=== PATIENT | male | born 1955 | race Caucasian/White ===

== ENCOUNTER 2016-12-07 05:21 | Day surgery (SDC) | payer BC ==
--- NOTE | ~2016-12-07 | EGD ---
EGD REPORT [facility] [address] [place]. [address] NAME: TREVOR HENNESSY : 55 STATUS : REG [facility]#: [id number] AGE: 61 ADM/REG DATE : 12/07/16 MR#: [id number] REPORT SERV DATE: 12/07/16 DICTATED BY: KIERA LEWIS DATE: 12/07/16 REPORT STATUS : Draft TRANSCRIBED BY: [facility] DATE: 12/07/16 Endoscopy Center Patient Name: Trevor Hennessy Date of : 1955 Attending MD: KIERA LEWIS, Procedure Date No Time: 12/07/2016 Procedure: Upper GI endoscopy Indications: Heartburn, Esophageal reflux symptoms that recur despite appropriate therapy Referring MD: Stephanie Tian Medicines: Propofol per Anesthesia Complications: No immediate complications. Estimated blood loss: None. Procedure: Pre-Anesthesia Assessment: - ASA Grade Assessment: III - A patient with severe systemic disease. After obtaining informed consent, the endoscope was passed under direct vision. Throughout the procedure, the patient's blood pressure, pulse, and oxygen saturations were monitored continuously. The GIF [id number] was introduced through the mouth, and advanced to the second part of duodenum. The upper GI endoscopy was accomplished with ease. The patient tolerated the procedure well. Findings: LA Grade A (one or more mucosal breaks less than 5 mm, not extending between tops of 2 mucosal folds) esophagitis with no bleeding was found 39 to 40 cm from the incisors. May represent a tongue of salmon-colored mucosa. Biopsies were taken with a cold forceps for histology. Estimated blood loss: none. The Z-line was found 40 cm from the incisors. Diffuse mild inflammation characterized by congestion (edema) and erythema was found in the gastric antrum. Biopsies were taken with a cold forceps for histology. The duodenal bulb and 2nd part of the duodenum were normal. Impression: - LA Grade A esophagitis. May represent a tongue of salmon-colored mucosa. Biopsied. - Z-line 40 cm from the incisors. - Gastritis. Biopsied. - Normal duodenal bulb and 2nd part of the duodenum. Recommendation: - Patient has a contact number available for emergencies. The signs and symptoms of potential delayed complications were discussed with the patient. Return to EGD REPORT [address] [address] NAME: TREVOR HENNESSY : 55 STATUS : REG [facility] [place] PAT#: [id number] AGE: 61 ADM/REG DATE : 12/07/16 MR#: [id number] REPORT SERV DATE: 12/07/16 DICTATED BY: KIERA LEWIS DATE: 12/07/16 REPORT STATUS : Draft TRANSCRIBED BY: [employer] DATE: 12/07/16 normal activities tomorrow. Written discharge instructions were provided to the patient. - Regular diet. - Discharge patient to home (with escort). - Follow an antireflux regimen. - No aspirin, ibuprofen, naproxen, or other non-steroidal anti-inflammatory drugs. - Continue present medications. - Await pathology results. - Return to GI clinic in 4 weeks. Procedure Code(s): --- Professional --- 87686, Esophagogastroduodenoscopy, flexible, transoral; with biopsy, single or multiple Diagnosis Code(s): --- Professional --- K20.9, Esophagitis, unspecified K29.70, Gastritis, unspecified, without bleeding R12, Heartburn K21.9, Gastro-esophageal reflux disease without esophagitis CPT copyright 2013 [employer]. All rights reserved. The codes documented in this report are preliminary and upon aircraft power plant assembler review may be revised to meet current compliance requirements. KIERA LEWIS, 12/07/2016 7:33 AM This report has been signed electronically. Number of Addenda: 0 Note Initiated On: 12/07/2016 7:00 AM Scope Withdrawal Time 0 hours 0 minutes 0 seconds [address] [address] [address]
--- NOTE | ~2016-12-07 | EGD ---
EGD REPORT [facility] [address] [place]. [address] NAME: TREVOR HENNESSY : 55 STATUS : REG [facility]#: [id number] AGE: 61 ADM/REG DATE : 12/07/16 MR#: [id number] REPORT SERV DATE: 12/07/16 DICTATED BY: KIERA LEWIS DATE: 12/07/16 REPORT STATUS : Draft TRANSCRIBED BY: [facility] DATE: 12/07/16 Endoscopy Center Patient Name: Trevor Hennessy Date of : 1955 Attending MD: KIERA LEWIS, Procedure Date No Time: 12/07/2016 Procedure: Colonoscopy Indications: Screening for colorectal malignant neoplasm, This is the patient's first colonoscopy Referring MD: Liban Zhao Medicines: Propofol per Anesthesia Complications: No immediate complications. Estimated blood loss: None. Procedure: Pre-Anesthesia Assessment: - ASA Grade Assessment: III - A patient with severe systemic disease. After I obtained informed consent, the scope was passed under direct vision. Throughout the procedure, the patient's blood pressure, pulse, and oxygen saturations were monitored continuously. The CF [id number] was introduced through the anus and advanced to the terminal ileum. The colonoscopy was performed with ease. The patient tolerated the procedure well. The quality of the bowel preparation was good. The ileocecal valve, appendiceal orifice, terminal ileum and rectum were photographed. Findings: The perianal and digital rectal examinations were normal. The terminal ileum appeared normal. A sessile polyp was found in the recto-sigmoid colon. The polyp was 5 mm in size. The polyp was removed with a cold snare. Resection and retrieval were complete. Estimated blood loss: none. Internal hemorrhoids were found during retroflexion and were small and Grade I (internal hemorrhoids that do not prolapse). Impression: - The examined portion of the ileum was normal. - One 5 mm polyp at the recto-sigmoid colon. Resected and retrieved. - Internal hemorrhoids. Recommendation: - Patient has a contact number available for emergencies. The signs and symptoms of potential delayed complications were discussed with the patient. Return to normal activities tomorrow. Written discharge instructions were provided to the patient. EGD REPORT [address] [place]. [address] NAME: TREVOR HENNESSY : 55 [place] : [place] [facility] [place] [id number] AGE: 61 ADM/REG DATE : 12/07/16 MR#: [id number] REPORT SERV DATE: 12/07/16 DICTATED BY: KIERA LEWIS DATE: 12/07/16 REPORT STATUS : Draft TRANSCRIBED BY: [employer] DATE: 12/07/16 - Regular diet. - Discharge patient to home (with escort). - Continue present medications. - Await pathology results. - Repeat colonoscopy in 5 years for surveillance. - Return to GI clinic in 4 weeks. Procedure Code(s): --- Professional --- 99426, Colonoscopy, flexible, proximal to splenic flexure; with removal of tumor(s), polyp(s), or other lesion(s) by snare technique Diagnosis Code(s): --- Professional --- K64.0, First degree hemorrhoids D12.7, Benign neoplasm of rectosigmoid junction Z12.11, Encounter for screening for malignant neoplasm of colon CPT copyright 2013 [employer]. All rights reserved. The codes documented in this report are preliminary and upon florist review may be revised to meet current compliance requirements. KIERA LEWIS, 12/07/2016 7:48 AM This report has been signed electronically. Number of Addenda: 0 Note Initiated On: 12/07/2016 7:02 AM Scope Withdrawal Time 0 hours 8 minutes 33 seconds [address] [place] [id number]
[~2016-12-07 05:21] MED LIST: ADVIL PO; ANTIBIOTIC PO; ASAB PO; BUM1 PO; BUM2 PO; CRESTOR20 MG PO; ELIQUIS 5 MG TAB5 MG PO; FISH-EPA1000 MG PO; GLUCOPHAGE1000 MG PO; GLUCPH PO; JANTOVEN5 MG PO; JANUVIA100 MG PO; KDUR20 PO; KLOR-CON20 MEQ PO; LIPITOR40 PO; LOP25 PO; LOP50 PO; LOPRESS HCT1 TAB PO; LORTAB 5 PO; LOTE40 PO; MAGNESIUM OTC PO; MAGNESIUM PO; NEXIUM40 PO; NITROQUICK0.4 MG SL; NORV10 PO; PACERONE400 MG PO; PRILO PO; PRILOSEC OTC20 MG PO; PROAIR HFA INH; SLO-NIACIN250 MG PO; TOPXL50 PO; ZANTAC300 MG PO
[2017-04-18] MEDS ORDERED: BREO ELLIPTA INH (08:04)
[2017-04-18] MEDS ORDERED: SPIRIVA INH (08:04)
[2017-04-18] MEDS ORDERED: NITROSTAT0.4 MG SL (08:05)
[2017-04-23] MEDS ORDERED: LEVEMFLXPN SC (11:35)
== END 2016-12-07 23:59 | disposition home or self-care (01) ==
LOC: DMU 05:21
PROVIDERS: Internal Medicine Gastroenterology
PROC: 0DB68ZX Excision of Stomach, Via Natural or Artificial Opening Endoscopic, Diagnostic (ICD-10-PCS; 2016-12-07)
PROC: 0DBN8ZX Excision of Sigmoid Colon, Via Natural or Artificial Opening Endoscopic, Diagnostic (ICD-10-PCS; principal; 2016-12-07 07:00)
PROC: 0DB58ZX Excision of Esophagus, Via Natural or Artificial Opening Endoscopic, Diagnostic (ICD-10-PCS; 2016-12-07 07:00)
DX: Z12.11 Encounter for screening for malignant neoplasm of colon (principal); D12.7 Benign neoplasm of rectosigmoid junction; K64.0 First degree hemorrhoids; K22.70 Barrett's esophagus without dysplasia; K29.50 Unspecified chronic gastritis without bleeding; I48.91 Unspecified atrial fibrillation; E78.00 Pure hypercholesterolemia, unspecified; G47.33 Obstructive sleep apnea (adult) (pediatric); J44.9 Chronic obstructive pulmonary disease, unspecified; K21.9 Gastro-esophageal reflux disease without esophagitis; E11.9 Type 2 diabetes mellitus without complications; I10 Essential (primary) hypertension; I25.10 Atherosclerotic heart disease of native coronary artery without angina pectoris; Z95.1 Presence of aortocoronary bypass graft; Z88.5 Allergy status to narcotic agent; Z79.899 Other long term (current) drug therapy; Z90.89 Acquired absence of other organs; Z90.49 Acquired absence of other specified parts of digestive tract; Z96.651 Presence of right artificial knee joint
CPT/HCPCS: 82962; 88305